=== PATIENT | female | born 1965 | race Caucasian/White ===

== ENCOUNTER 2022-03-23 08:48 | Outpatient (CLI) | payer BC, SELFPAY ==
[2022-03-23 14:33] LABS: Albumin* 4.9 g/dL (3.3-5.0)
[2022-03-23 14:34] LABS: Chloride* 97 mmol/L (96-114); Potassium* 3.9 mmol/L (3.6-5.1); Sodium* 137 mmol/L (135-149)
[2022-03-23 14:36] LABS: Bilirubin Total* 1.1 mg/dL (0.1-1.5); Carbon Dioxide* 29 mmol/L (20-32); Cholesterol* 245 mg/dL (90-199); Creatinine* 0.8 mg/dL (0.5-1.5); Estimated Glomerular Filt Rate 88 ml/min
[2022-03-23 14:37] LABS: Alanine Aminotransferase* 29 U/L (4-35); Alkaline Phosphatase* 122 U/L (40-150); Aspartate Amino Transferase* 33 U/L (12-35); Blood Urea Nitrogen* 13 mg/dL (7-30); Calcium* 9.9 mg/dL (8.4-10.6); Glucose* 106 mg/dL (60-115); Total Protein* 8.1 g/dL (6.0-8.3); Triglycerides* 145 mg/dL (40-149)
[2022-03-23 14:38] LABS: HDL Cholesterol* 73 mg/dL (>=50); LDL Cholesterol Calculated 143 mg/dL (<100)
== END 2022-03-23 08:49 | disposition home or self-care (01) ==
PROVIDERS: PCP Physician Assistant Medical; Visit Provider Physician Assistant Medical
DX: Z00.00 Encounter for general adult medical examination without abnormal findings (principal); I10 Essential (primary) hypertension; E78.5 Hyperlipidemia, unspecified; F41.9 Anxiety disorder, unspecified; F32.A Depression, unspecified
CPT/HCPCS: 80053; 80061; 84443

== ENCOUNTER 2023-07-24 08:20 | Outpatient (CLI) | payer BC, SELFPAY | END 2023-07-24 08:21 | disposition home or self-care (01) | LOC: NFLDREF 07-25 10:37 | PROVIDERS: PCP Physician Assistant Medical; Referring Provider Physician Assistant Medical; Visit Provider Physician Assistant Medical | DX: Z00.00 Encounter for general adult medical examination without abnormal findings (principal); E78.5 Hyperlipidemia, unspecified; I10 Essential (primary) hypertension; F41.9 Anxiety disorder, unspecified; G25.81 Restless legs syndrome | CPT/HCPCS: 80053; 80061; 82607; 82728; 84443 ==

== ENCOUNTER 2023-10-27 13:24 | Outpatient (CLI) | payer OTHER, SELFPAY ==
--- NOTE | 2023-10-27 14:00 | MM_ITS ---
Patient: RONY QIU Facility:?[facility] RIS Patient ID:?[id number] Site Patient ID:?[id number]. Site :?[id number] Study:?XRay-Breast Bilateral 3D-10/27/2023 1:56:34 PM Ordering Physician:Nam Final Report: BILATERAL SCREENING MAMMOGRAM WITH COMPUTER-AIDED DETECTION AND TOMOSYNTHESIS TECHNIQUE: CC and MLO views were obtained. These mammographic images have been obtained using full-field digital technique. These mammographic images were interpreted with the benefit of computer-aided detection. Breast Tomosynthesis was used in this interpretation. COMPARISON FILM: 09/29/2020, 10/27/2020, 05/07/2019, 09/29/2017. FINDINGS: There are scattered areas of fibroglandular density. IMPRESSION: There is no radiographic evidence for malignancy. ASSESSMENT: BI-RADS Category 1: Negative RECOMMENDATION: Routine screening mammogram in 1 year. A lay language report of this examination will be provided to the patient. Marco Robertson M.D. Diagnostic Radiologist [email or web address] DSM/sp R& Transcribed: 6:33 p.m. SP/Dictated by: Marco Robertson MD @ 10/30/2023 9:25:00 AM Signed by:?Marco Robertson MD @10/31/2023 5:13:14 AM (Electronic Signature)
== END 2023-10-27 13:25 | disposition home or self-care (01) ==
LOC: MAMMO 13:26
PROVIDERS: PCP Physician Assistant Medical; Visit Provider Physician Assistant Medical
DX: Z12.31 Encounter for screening mammogram for malignant neoplasm of breast (principal)
CPT/HCPCS: 77063; 77067

== ENCOUNTER 2023-11-22 09:23 | Outpatient (CLI) | payer OTHER, SELFPAY | END 2023-11-22 09:24 | disposition home or self-care (01) | PROVIDERS: PCP Physician Assistant Medical; Visit Provider Physician Assistant Medical | DX: I10 Essential (primary) hypertension (principal); E78.5 Hyperlipidemia, unspecified; R74.01 Elevation of levels of liver transaminase levels | CPT/HCPCS: 80061; 80076 ==

== ENCOUNTER 2024-03-21 08:23 | Outpatient (CLI) | payer OTHER, SELFPAY | END 2024-03-21 08:24 | disposition home or self-care (01) | LOC: NFLDREF 03-22 09:02 | PROVIDERS: PCP Physician Assistant Medical; Referring Provider Physician Assistant Medical; Visit Provider Physician Assistant Medical | DX: Z00.00 Encounter for general adult medical examination without abnormal findings (principal); R74.01 Elevation of levels of liver transaminase levels; I10 Essential (primary) hypertension; E78.5 Hyperlipidemia, unspecified | CPT/HCPCS: 80053; 86703; 86803 ==

== ENCOUNTER 2024-04-17 09:33 | Outpatient (CLI) | payer OTHER, SELFPAY | END 2024-04-17 09:34 | disposition home or self-care (01) | LOC: NFLDREF 18:42 | PROVIDERS: PCP Physician Assistant Medical; Referring Provider Physician Assistant Medical; Visit Provider Physician Assistant Medical | DX: N30.01 Acute cystitis with hematuria (principal); N39.0 Urinary tract infection, site not specified | CPT/HCPCS: 87086 ==

== ENCOUNTER 2024-06-05 09:43 | Outpatient (CLI) | payer OTHER, SELFPAY | END 2024-06-05 09:44 | disposition home or self-care (01) | PROVIDERS: PCP Physician Assistant Medical; Visit Provider Physician Assistant Medical | DX: R20.2 Paresthesia of skin (principal) | CPT/HCPCS: 82306; 82607; 82746 ==

== ENCOUNTER 2025-01-09 08:12 | Outpatient (CLI) | payer OTHER, SELFPAY | END 2025-01-09 08:13 | disposition home or self-care (01) | PROVIDERS: PCP Physician Assistant Medical; Visit Provider Physician Assistant Medical | DX: Z00.01 Encounter for general adult medical examination with abnormal findings (principal); E78.5 Hyperlipidemia, unspecified; I10 Essential (primary) hypertension; R74.01 Elevation of levels of liver transaminase levels; F41.8 Other specified anxiety disorders; Z13.21 Encounter for screening for nutritional disorder | CPT/HCPCS: 80053; 80061; 82306; 84443 ==

== ENCOUNTER 2025-03-19 08:15 | Outpatient (CLI) | payer OTHER, SELFPAY ==
--- NOTE | 2025-03-19 08:45 | CRLHL7_ITS ---
For Patients: As a result of the Century Cures Act, medical imaging exams and procedure reports are released immediately into your electronic medical record. You may view this report before your referring provider. If you have questions, please contact your health care provider. INDICATION: BILATERAL SCREENING MAMMOGRAM, ASYMPOTMATIC 59 Y/O FEMALE COMPARISON: 10/27/2023, 07/29/2021, 10/27/2020 TECHNIQUE: Digital mammogram in CC and MLO projections including computer-aided detection (CAD) and tomosynthesis. BREAST COMPOSITION: There are scattered areas of fibroglandular density. FINDINGS: No suspicious findings. ASSESSMENT: BI-RADS 1 Negative RECOMMENDATION: Annual screening mammogram. A lay language report of this examination will be provided to the patient. Dictated by: Theresa Javier MD @ 03/20/2025 11:47:23 (Electronically Signed)
== END 2025-03-19 08:16 | disposition home or self-care (01) ==
LOC: MAMMO 08:15
PROVIDERS: PCP Physician Assistant Medical; Visit Provider Physician Assistant Medical
DX: Z12.31 Encounter for screening mammogram for malignant neoplasm of breast (principal)
CPT/HCPCS: 77063; 77067